=== PATIENT | female | born 1955 | race African-American/Black ===

== ENCOUNTER 2016-10-16 19:26 | Observation (INO) | payer MEDICAID ==
[~2016-10-16] VITALS: Ht 162.6 cm; Wt 84.4 kg
[2016-10-16 20:12] LABS: Basophils # (auto) 0.1 uL; Basophils % (auto) 2.7 % (0.0-2.0); Eosinophils # (auto) 0.1 uL; Eosinophils % (auto) 2.1 % (0.0-7.0); Hematocrit 32.3 % (36.0-46.0); Hemoglobin 10.7 g/dL (12.2-16.2); Lymphocytes # (auto) 2.7 uL; Lymphocytes % (auto) 49.6 % (10.0-50.0); Mean Corpuscular Hemoglobin 29.4 pg (28.0-32.0); Mean Corpuscular Volume 88.9 fL (80.0-100.0); Mean Platelet Volume 8.2 fL (7.4-10.4); Monocytes # (auto) 0.4 uL; Monocytes % (auto) 6.5 % (0.0-12.0); Neutrophils # (auto) 2.2 uL; Neutrophils % (auto) 39.1 % (37.0-80.0); Platelet Count (auto) 270 10^3/uL (140-450); Red Cell Distribution Width 14.6 % (11.6-16.0); White Blood Cell 5.5 10^3/uL (4.4-10.8)
[2016-10-16] MEDS ORDERED: ASPirin 81 mg TAB PO ONE (20:15)
[2016-10-16 20:29] LABS: INR 0.97 (0.9-1.15); Partial Thromboplastin Time 25.7 sec (22.64-33.71); Prothrombin Time 10.6 sec (9.37-12.3)
[2016-10-16 20:47] LABS: B-Type Natriuretic Peptide 41.76 pg/mL (0-100)
[2016-10-16 20:54] LABS: Temperature: 23.1 C (20.0-25.0)
[2016-10-16 21:35] LABS: Albumin 3.1 g/dL (3.4-5.0); Alkaline Phosphatase 84 U/L (45-117); Anion Gap 8 (5-15); Aspartate Aminotransferase 16 U/L (15-37); BUN/Creatinine Ratio 11.4; Bilirubin, Total 0.2 mg/dL (0.2-1.0); Blood Urea Nitrogen 8 mg/dL (7-18); Calcium 8.2 mg/dL (8.5-10.1); Carbon Dioxide 26 mmol/L (21-32); Chloride 109 mmol/L (98-107); GFR African American 110 mL/min; GFR Non-African American 91 mL/min; Glucose 85 mg/dL (74-106); Potassium 3.6 mmol/L (3.5-5.1); Sodium 143 mmol/L (136-145)
[2016-10-16 22:36] VITALS: BP 129/56
[2016-10-16 23:25] LABS: Urine Bilirubin Negative (Negative); Urine Blood TRACE /uL (Negative); Urine Color Yellow (Yellow); Urine Glucose Normal (Normal); Urine Ketone Negative (Negative); Urine Mucus FEW (None Seen); Urine Nitrite Negative (Negative); Urine RBC 1 /hpf (0 - 4); Urine Squamous Epithelial Cell FEW /hpf (<5); Urine Urobilinogen Normal (Negative); Urine pH 6.5 (5.0-8.0)
== END 2016-10-17 00:06 | disposition home or self-care (01) | DRG 351 ==
LOC: EDBD 19:26 → ER 19:39 → OVERFLOW 20:02 → ER 10-17 00:06
PROVIDERS: ADMIT Family Medicine; ATTEND Family Medicine
DX: M25.511 Pain in right shoulder (principal); E03.9 Hypothyroidism, unspecified; E78.5 Hyperlipidemia, unspecified; M79.601 Pain in right arm; M25.2 Flail joint; Z90.710 Acquired absence of both cervix and uterus
CPT/HCPCS: 36415; 71010; 73030; 80053; 81001; 83735; 83880; 84443; 84484; 85025; 85610; 85730; 93005; 99285; G0378

== ENCOUNTER 2017-07-20 17:18 | Inpatient (IN) | payer MEDICAID ==
[~2017-07-20] VITALS: Ht 162.6 cm; Wt 85.1 kg
[2017-07-20] MEDS ORDERED: methylPREDNISolone SOD SUCC 125 MG/2 ML VL IV ONE (18:30)
[2017-07-20] MEDS ORDERED: ALBUTEROL SULF 2.5 MG/0.5ML(0.5%) NEB SOLN HHN ONE (18:30)
[2017-07-20] MEDS ORDERED: LEVOFLOXACIN 500MG 100 ML IV ONE (18:30)
[2017-07-20] MEDS ORDERED: IPRATROPIUM BROM 0.5 MG/2.5ML INH SOL HHN ONE (18:30)
[2017-07-20 19:07] LABS: Basophils # (auto) 0 uL; Basophils % (auto) 0.7 % (0.0-2.0); Eosinophils # (auto) 0 uL; Eosinophils % (auto) 0.1 % (0.0-7.0); Hematocrit 37.6 % (36.0-46.0); Hemoglobin 12.5 g/dL (12.2-16.2); Lymphocytes # (auto) 0.5 uL; Lymphocytes % (auto) 10.8 % (10.0-50.0); Mean Corpuscular Hemoglobin 29.4 pg (28.0-32.0); Mean Corpuscular Hgb Conc. 33.1 g/dL (32.0-36.0); Mean Corpuscular Volume 88.9 fL (80.0-100.0); Monocytes # (auto) 0.3 uL; Monocytes % (auto) 6.7 % (0.0-12.0); Neutrophils # (auto) 3.8 uL; Neutrophils % (auto) 81.7 % (37.0-80.0); Platelet Count (auto) 166 10^3/uL (140-450); Red Blood Cells 4.23 10^6/uL (4.0-5.20); Red Cell Distribution Width 14.1 % (11.8-14.3); White Blood Cell 4.6 10^3/uL (4.4-10.8)
[2017-07-20 19:24] LABS: Alanine Aminotransferase 71 U/L (13-56); Albumin 3.3 g/dL (3.4-5.0); Anion Gap 3 (5-15); Aspartate Aminotransferase 114 U/L (15-37); BUN/Creatinine Ratio 5.7; Blood Urea Nitrogen 7 mg/dL (7-18); Calcium 8.1 mg/dL (8.5-10.1); Carbon Dioxide 32 mmol/L (21-32); Chloride 101 mmol/L (98-107); GFR African American 57 mL/min; GFR Non-African American 47 mL/min; Glucose 108 mg/dL (74-106); Potassium 3.8 mmol/L (3.5-5.1); Sodium 136 mmol/L (136-145)
[2017-07-20 19:29] LABS: Alkaline Phosphatase 149 U/L (45-117); Bilirubin, Total 0.3 mg/dL (0.2-1.0); Total Protein 7.8 g/dL (6.4-8.2)
[2017-07-20] MEDS ORDERED: ONDANSETRON HCL 4 MG/2 ML VIAL IV PRN (21:30)
[2017-07-20] MEDS ORDERED: ACETAMINOPHEN 325 MG TAB PO PRN (21:30)
[2017-07-20] MEDS ORDERED: TEMAZEPAM 15 MG CAP PO PRN (21:30)
[2017-07-20] MEDS ORDERED: DOCUSATE SOD 100 MG CAP PO PRN (21:30)
[2017-07-20] MEDS ORDERED: HYDROcodone-ACET 5/325MG TAB PO PRN (21:30)
[2017-07-20] MEDS ORDERED: SODIUM CHLORIDE 0.9% 500 ML IV ONE (21:30)
[2017-07-20] MEDS: FAMOTIDINE 20 MG TAB PO SCH (21:58)
[2017-07-20 22:22] VITALS: BP 129/64
[2017-07-20] MEDS: SODIUM CHLORIDE 0.9% 1,000 ML IV SCH (22:30)
[2017-07-21] MEDS ORDERED: PRO125RS PR (00:39)
[2017-07-21] MEDS ORDERED: LEVO50TA7 PO (00:39)
[2017-07-21] MEDS ORDERED: AZIT250T7 PO (00:39)
[2017-07-21] MEDS ORDERED: ESTR0.3T PO (00:39)
[2017-07-21] MEDS ORDERED: ATOR10TA PO (00:39)
[2017-07-21 05:28] VITALS: BP 124/59
[2017-07-21] MEDS: LEVOTHYROXINE SODIUM 50 MCG TAB PO SCH (06:38)
[2017-07-21 06:48] LABS: Basophils # (auto) 0 uL; Basophils % (auto) 0.1 % (0.0-2.0); Eosinophils # (auto) 0 uL; Hematocrit 35.2 % (36.0-46.0); Hemoglobin 11.7 g/dL (12.2-16.2); Lymphocytes # (auto) 0.6 uL; Lymphocytes % (auto) 12.7 % (10.0-50.0); Mean Corpuscular Hemoglobin 29.5 pg (28.0-32.0); Mean Corpuscular Hgb Conc. 33.3 g/dL (32.0-36.0); Mean Corpuscular Volume 88.5 fL (80.0-100.0); Monocytes # (auto) 0.1 uL; Monocytes % (auto) 2.9 % (0.0-12.0); Neutrophils # (auto) 3.8 uL; Neutrophils % (auto) 84.3 % (37.0-80.0); Nucleated Red Blood Cells % 0.1 %; Platelet Count (auto) 172 10^3/uL (140-450); Red Blood Cells 3.98 10^6/uL (4.0-5.20); Red Cell Distribution Width 13.5 % (11.8-14.3); White Blood Cell 4.5 10^3/uL (4.4-10.8)
[2017-07-21 07:08] LABS: BUN/Creatinine Ratio 11.8; Calcium 8.7 mg/dL (8.5-10.1)
[2017-07-21 07:14] LABS: Bilirubin, Total 0.2 mg/dL (0.2-1.0); Total Protein 7.5 g/dL (6.4-8.2)
[2017-07-21 09:00] VITALS: BP 120/50
[2017-07-21] MEDS ORDERED: LEVOFLOXACIN 500MG 100 ML IV SCH (10:00)
[2017-07-21] MEDS: FAMOTIDINE 20 MG TAB PO SCH ×2 (10:32→22:33)
[2017-07-21] MEDS: SODIUM CHLORIDE 0.9% 1,000 ML IV SCH (10:32)
[2017-07-21] MEDS: ENOXAPARIN SOD 40 MG/0.4 ML SYRINGE SC SCH (10:32)
[2017-07-21 13:00] VITALS: BP 122/54
[2017-07-21] MEDS ORDERED: guaiFENesin-CODEINE LIQUID 5 ML UD PO PRN (14:45)
[2017-07-21] MEDS: OSELTAMIVIR 75 MG CAP PO SCH ×2 (16:10→22:32)
[2017-07-21 17:01] VITALS: BP 118/55
[2017-07-21 22:00] VITALS: BP 136/70
[2017-07-22] MEDS: SODIUM CHLORIDE 0.9% 1,000 ML IV SCH (00:50)
[2017-07-22 05:00] VITALS: BP 118/62
[2017-07-22] MEDS: LEVOTHYROXINE SODIUM 50 MCG TAB PO SCH (06:25)
[2017-07-22 09:00] VITALS: BP 118/60
[2017-07-22] MEDS: ENOXAPARIN SOD 40 MG/0.4 ML SYRINGE SC SCH (10:00)
[2017-07-22] MEDS: FAMOTIDINE 20 MG TAB PO SCH (10:22)
[2017-07-22] MEDS: OSELTAMIVIR 75 MG CAP PO SCH (10:22)
== END 2017-07-22 14:17 | disposition home or self-care (01) | DRG 139 ==
LOC: EDUNIT# 17:18 → EDBD 17:18 → ER 17:25 → OVERFLOW 17:26 → EAST 22:22
PROVIDERS: ADMIT Nurse Practitioner; ATTEND Internal Medicine Pulmonary Disease
DX: J10.00 Influenza due to other identified influenza virus with unspecified type of pneumonia (principal); E44.1 Mild protein-calorie malnutrition; E78.5 Hyperlipidemia, unspecified; J20.9 Acute bronchitis, unspecified; Z82.49 Family history of ischemic heart disease and other diseases of the circulatory system; Z90.710 Acquired absence of both cervix and uterus; Z83.3 Family history of diabetes mellitus; Z98.51 Tubal ligation status; K80.20 Calculus of gallbladder without cholecystitis without obstruction; Z68.32 Body mass index [BMI] 32.0-32.9, adult
CPT/HCPCS: 36415; 71045; 76705; 80053; 83605; 83880; 84484; 85025; 87040; 87804; 93005; 94640; 94761; 96361; 96365; 96375; J1956

== ENCOUNTER 2017-10-11 14:21 | Emergency (ER) | payer MEDICAID ==
[~2017-10-11] VITALS: Ht 162.6 cm; Wt 81.6 kg
[~2017-10-11 14:21] MED LIST: ATOR10TA PO; AZIT250T7 PO; ESTR0.3T PO; LEVO50TA7 PO; PRO125RS PR
[2017-10-11 15:33] LABS: Urine Bacteria FEW /hpf (None Seen); Urine Blood 1+ /uL (Negative); Urine Mucus FEW (None Seen); Urine Specific Gravity 1.014 (1.001-1.035); Urine WBC 1 /hpf (0 - 5)
[2017-10-11 15:41] LABS: Basophils # (auto) 0.1 uL; Basophils % (auto) 1.6 % (0.0-2.0); Eosinophils # (auto) 0.1 uL; Eosinophils % (auto) 2.2 % (0.0-7.0); Hematocrit 35.7 % (36.0-46.0); Lymphocytes % (auto) 44.9 % (10.0-50.0); Mean Corpuscular Hemoglobin 29.6 pg (28.0-32.0); Mean Corpuscular Hgb Conc. 33.5 g/dL (32.0-36.0); Mean Corpuscular Volume 88.3 fL (80.0-100.0); Monocytes # (auto) 0.3 uL; Neutrophils % (auto) 45.3 % (37.0-80.0); Nucleated Red Blood Cells % 0.2 %; Platelet Count (auto) 205 10^3/uL (140-450); Red Blood Cells 4.04 10^6/uL (4.0-5.20); Red Cell Distribution Width 14.4 % (11.8-14.3); White Blood Cell 4.4 10^3/uL (4.4-10.8)
[2017-10-11 15:49] LABS: Albumin 3.5 g/dL (3.4-5.0); BUN/Creatinine Ratio 8.6; Calcium 9.2 mg/dL (8.5-10.1); Potassium 3.3 mmol/L (3.5-5.1)
[2017-10-11 15:52] LABS: Bilirubin, Total 0.3 mg/dL (0.2-1.0); Total Protein 7.5 g/dL (6.4-8.2)
[2017-10-11] MEDS ORDERED: IOHEXOL 300 MG/ML 100ML BOTTLE IJ ONE (19:53)
[2017-10-12 01:58] VITALS: BP 101/50
== END 2017-10-12 01:00 | disposition home or self-care (01) ==
LOC: ER 14:21
DX: K91.872 Postprocedural seroma of a digestive system organ or structure following a digestive system procedure (principal); E78.5 Hyperlipidemia, unspecified; E07.9 Disorder of thyroid, unspecified; R10.9 Unspecified abdominal pain; Z79.2 Long term (current) use of antibiotics; Z90.710 Acquired absence of both cervix and uterus; Z79.899 Other long term (current) drug therapy; Z90.49 Acquired absence of other specified parts of digestive tract
CPT/HCPCS: 36415; 74177; 80053; 81001; 83690; 85025; 99285; Q9967

== ENCOUNTER 2019-06-20 16:43 | Emergency (ER) | payer MEDICAID ==
[~2019-06-20] VITALS: Ht 162.6 cm; Wt 98.9 kg
[~2019-06-20 16:43] MED LIST changes: -AZIT250T7 PO; +AZIT250T9 PO
[2019-06-20 16:59] VITALS: BP 152/51
[2019-06-20 18:47] LABS: Basophils # (auto) 0.1 uL; Basophils % (auto) 0.7 % (0.0-2.0); Eosinophils # (auto) 0.1 uL; Eosinophils % (auto) 0.6 % (0.0-7.0); Hemoglobin 12.3 g/dL (12.2-16.2); Lymphocytes # (auto) 2.8 uL; Lymphocytes % (auto) 30.5 % (10.0-50.0); Mean Corpuscular Hemoglobin 29.5 pg (28.0-32.0); Mean Corpuscular Hgb Conc. 33.1 g/dL (32.0-36.0); Mean Corpuscular Volume 89.2 fL (80.0-100.0); Monocytes # (auto) 0.3 uL; Monocytes % (auto) 3.7 % (0.0-12.0); Neutrophils % (auto) 64.5 % (37.0-80.0); Platelet Count (auto) 293 10^3/uL (140-450); Red Blood Cells 4.15 10^6/uL (4.0-5.20); Red Cell Distribution Width 14.6 % (11.8-14.3); White Blood Cell 9.3 10^3/uL (4.4-10.8)
[2019-06-20 19:02] LABS: Albumin 2.9 g/dL (3.4-5.0); Anion Gap 3 (5-15); Blood Urea Nitrogen 15 mg/dL (7-18); Calcium 9.2 mg/dL (8.5-10.1); Carbon Dioxide 30 mmol/L (21-32); Chloride 106 mmol/L (98-107); Glucose 113 mg/dL (74-106); Magnesium 2.2 mg/dL (1.6-2.6); Sodium 139 mmol/L (136-145)
[2019-06-20 19:10] LABS: Alanine Aminotransferase 16 U/L (13-56); Alkaline Phosphatase 97 U/L (45-117); Aspartate Aminotransferase 18 U/L (15-37); BUN/Creatinine Ratio 16.5; Bilirubin, Total 0.2 mg/dL (0.2-1.0); GFR African American 81 mL/min; GFR Non-African American 67 mL/min; Total Protein 7.2 g/dL (6.4-8.2)
== END 2019-06-20 20:44 | disposition left against medical advice (07) ==
LOC: ER 16:50
DX: R06.02 Shortness of breath (principal); R00.2 Palpitations; E78.5 Hyperlipidemia, unspecified; E07.9 Disorder of thyroid, unspecified; Z79.899 Other long term (current) drug therapy
CPT/HCPCS: 36415; 71046; 80053; 83735; 84484; 85025; 85379; 93005